=== PATIENT | female | born 1970 | race African-American/Black ===

== ENCOUNTER 2021-02-22 17:27 | Outpatient (CLI) | payer OTHER, SELFPAY ==
--- NOTE | ~2021-02-22 | XR_ITS ---
EXAMINATION: XR lumbar spine 2-3V EXAM DATE: 02/22/2021 18:21 INDICATION: Low back pain Lt side; fell from rolling chair onto Lt side . Initial encounter. TECHNIQUE: Lumber spine frontal, lateral, lateral L5-S1 projections for interpretation. There is no prior study for comparison. FINDINGS: There is 2 mm anterolisthesis L4-5, mild loss of the L4-5 disc height. The vertebral chris s are otherwise aligned. The vertebral body and disc heights are otherwise well maintained. Mild lumb ar facet arthropathy. There are no acute fractures identified. Sacrum, sacroiliac joints, sacral arcu ate lines are intact. IMPRESSION: Mild lumbar spondylosis. Reviewed, dictated and finalized at location A. IMPRESSION: Mild lumbar spondylosis.
--- NOTE | ~2021-02-22 | XR_ITS ---
EXAMINATION: XR shoulder LT min 2V EXAM DATE: 02/22/2021 18:21 INDICATION: Left shoulder pain; fell from rolling chair onto Lt side. TECHNIQUE: The following left shoulder projections obtained: frontal projection with internal rotatio n, frontal projection with external rotation, Grashey, and axillary (4+ views). There is no prior st udy for comparison. FINDINGS: No evidence of left shoulder rotator cuff calcific tendinosis. Unremarkable left glenoh umeral and acromioclavicular joints. There are no acute fractures or dislocations identified. There is no subcutaneous gas. The soft tissue is unremarkable. There are no radiopaque foreign bodies. IMPRESSION: 1. Unremarkable left shoulder exam. Reviewed, dictated and finalized at location A.
--- NOTE | ~2021-02-22 | XR_ITS ---
EXAMINATION: XR cervical spine 4-5V EXAM DATE: 02/22/2021 18:20 INDICATION: Neck pain Lt sided pain; fell from rolling chair onto Lt side . TECHNIQUE: Cervical spine lateral, frontal, open-mouth odontoid projections (4 images). There is no prior study for comparison. FINDINGS: There is no evidence of acute cervical fracture. The odontoid process is intact. Pre-dens space is normal. Prevertebral soft tissue is normal. There are no soft tissue abnormalities identi fied. Vertebral body and disc heights are well-maintained. The vertebral bodies are aligned. IMPRESSION: 1. No acute cervical findings. Reviewed, dictated and finalized at location A.
== END 2021-02-22 17:28 | disposition home or self-care (01) ==
LOC: ANHIMG 17:45
PROVIDERS: PCP Nurse Practitioner Family
DX: M54.2 Cervicalgia (principal); M25.512 Pain in left shoulder; M47.896 Other spondylosis, lumbar region
CPT/HCPCS: 72050; 72100; 73030

== ENCOUNTER 2021-05-08 10:12 | Outpatient (CLI) | payer OTHER, SELFPAY ==
[2021-05-08 11:17] LABS: Basophils Percent Auto 0.6 % (0.2-1.2); Eosinophils Absolute Auto 0.2 K/mm3 (0-0.3); Hematocrit 32.6 % (37.0-47.0); Hemoglobin 10.4 g/dL (12.0-15.0); Immature Granulocyte Absolute 0.01 K/mm3 (0.00-0.031); Immature Granulocyte Percent A 0.1 % (0-0.5); Lymphocytes Absolute Auto 2.86 K/mm3 (0.9-3.2); Lymphocytes Percent Auto 40.8 % (18.3-44.2); Mean Corpuscular HGB Conc 31.9 g/dl (32-36); Mean Corpuscular Hemoglobin 27.3 pg (26-34); Mean Corpuscular Volume 85.6 fl (80-100); Mean Platelet Volume 9.7 fl (7.4-10.4); Monocytes Absolute Auto 0.6 K/mm3 (0.1-0.6); Monocytes Percent Auto 8.7 % (2.6-8.5); Neutrophils Absolute Auto 3.3 K/mm3 (1.3-6.7); Neutrophils Percent Auto 46.8 % (45.5-73.1); Platelet Count Result 551 k/mm3 (150-375); Red Blood Count 3.81 M/mm3 (4.2-5.4); Red Cell Distribution Width 17.6 % (11.5-14.5)
== END 2021-05-08 10:13 | disposition home or self-care (01) ==
PROVIDERS: Visit Provider Obstetrics & Gynecology
DX: N92.1 Excessive and frequent menstruation with irregular cycle (principal)
CPT/HCPCS: 36415; 85025

== ENCOUNTER 2021-05-17 11:27 | Outpatient (CLI) | payer OTHER, SELFPAY ==
--- NOTE | ~2021-05-17 | US_ITS ---
EXAMINATION: US pelvic complete w TV DATE: 05/17/2021 11:59 INDICATION: Enlarged uterus. Menorrhagia. Comparison:No prior studies for comparison. TECHNIQUE: Multiple transabdominal and endovaginal sonographic images of the pelvis performed. FINDINGS: The uterus measures 13.2 x 7.5 x 8.4 cm. There is a uterine fibroid measuring 2.5 cm parace ntral to the right. The endometrial complex measures 8 mm. The right ovary measures 3.9 x 1.8 x 2.9 cm and the left ovary measures 3.7 x 3.1 x 3.3 cm. There ar e small follicles in each ovary. Normal doppler signal in both ovaries. There is no free fluid in the pelvis. There are no abnormal masses seen on either side. IMPRESSION: 1. Enlarged fibroid uterus. Reviewed, dictated and finalized at location A. IMPRESSION: 1. Enlarged fibroid uterus.
== END 2021-05-17 11:28 ==
PROVIDERS: Visit Provider Obstetrics & Gynecology
DX: N85.2 Hypertrophy of uterus (principal); D25.9 Leiomyoma of uterus, unspecified
CPT/HCPCS: 76830; 76856

== ENCOUNTER 2024-05-31 15:14 | Outpatient (CLI) | payer OTHER, SELFPAY ==
[2024-05-31 17:17] LABS: Iron 30 ug/dL (37-170)
[2024-05-31 17:29] LABS: Percent Iron Saturation 8 % (20-50)
[2024-05-31 17:54] LABS: Ferritin 8.17 ng/mL (11.1-264)
== END 2024-05-31 15:15 | disposition home or self-care (01) ==
DX: D50.9 Iron deficiency anemia, unspecified (principal); E53.8 Deficiency of other specified B group vitamins
CPT/HCPCS: 36415; 82607; 82728; 83540; 83550

== ENCOUNTER 2024-06-08 12:39 | Outpatient (CLI) | payer OTHER, SELFPAY ==
--- NOTE | ~2024-06-08 | US_ITS ---
US pelvic complete w TV Ordering provider: Phil Chavez MD History: . N93.9 - Abnormal uterine and vaginal bleeding, unspecified . Comparison: May 17, 2021 Technique: Transabdominal and endovaginal ultrasound of the pelvis (Doppler ultrasound interrogation techniques used as needed for this exam.) FINDINGS: CERVIX: Nabothian cyst. Blood clot is also seen in the cervix. UTERUS: Measures 13.5x 7.6x 7 cm in length which is within normal limits and is anteverted. Enlarged fibroid uterus is noted measuring 2.7 x 2.4 x 2.4 cm. ENDOMETRIUM: Not well demonstrated. CUL DE SAC: Minimal free fluid. RIGHT OVARY: Normal in size measuring 2.7x 2.3x 1.8 cm. Normal echotexture. Doppler vascular flow pre sent. LEFT OVARY: Normal in size measuring 3x 2.1x 2.2 cm. Normal echotexture. Doppler vascular flow presen t. ADNEXA: Normal. No mass. IMPRESSION: Fibroid uterus which is slightly larger than the previous study. Minimal free fluid. Nabothian cysts in the cervix. Minimal fluid in the cervix. Otherwise, normal pelvic ultrasound. Reviewed, dictated and finalized at location A. IMPRESSION: Fibroid uterus which is slightly larger than the previous study. Minimal free f luid. Nabothian cysts in the cervix. Minimal fluid in the cervix. Otherwise, no rmal pelvic ultrasound.
== END 2024-06-08 12:40 | disposition home or self-care (01) ==
LOC: ANHIMG 12:40
PROVIDERS: Visit Provider Obstetrics & Gynecology
DX: N93.9 Abnormal uterine and vaginal bleeding, unspecified (principal); D50.8 Other iron deficiency anemias; D25.9 Leiomyoma of uterus, unspecified
CPT/HCPCS: 76830; 76856

== ENCOUNTER 2024-11-09 14:50 | Outpatient (CLI) | payer OTHER, SELFPAY ==
--- NOTE | ~2024-11-09 | MM_ITS ---
EXAMINATION: MM screening miriam BI w alan HISTORY: Screening TECHNIQUE: Craniocaudal and mediolateral oblique 3-D tomosynthesis images were obtained and synthetic 2-D images were generated. CAD analysis was submitted and interpreted. COMPARISON: No prior mammogram is available for comparison at this institution. BREAST PARENCHYMAL COMPOSITION: Not dense: There are scattered areas of fibroglandular density. FINDINGS: There is no evidence of suspicious mass, calcification, or architectural distortion to sugg est malignancy in either breast. There has been no suspicious interval change. IMPRESSION: 1. No mammographic evidence of malignancy. 2. Recommend routine screening mammography in one year. BI-RADS Category 1: Negative Reviewed, dictated and finalized at location B.
--- OUTSIDE RECORDS SUMMARY | 2024-11-09 16:27 | XMS_ITS ---
Author Organization [employer] [facility] Address [address] [place] [address] [address] [place] [address] Care Team Providers Care Skin Peeling Machine Operator Name Role Phone Kennedy Gibson MD Primary Care Provider Karson Eldridge [facility] [phone] REASON FOR VISIT 08/22 UMR Colon Auth-pending Encounters Encounter Location Date Provider Diagnosis [facility], [address] [place] [address] 06/16/2024 Karson José Plan Of Treatment No Information Progress Notes * Fercho JAMESoinette LDOB: (53 yo F)Acc No.[id number]:06/16/2024 Patient: Jackelin RICE :1970 A ge:53 Y S ex:Female Address:[address] [place] [address] * true * Date: Generated for Cortneyi isac/Luisg/eTransmitting on: 0 11/09/2024 04:27 PM CDT
--- OUTSIDE RECORDS SUMMARY | 2024-11-09 16:27 | XMS_ITS ---
Author Organization [employer] Address [address] [facility] [address] [place] [address] Care Team Providers Care Websphere Commerce Architect Name Role Phone Kennedy Gibson MD Primary Care Provider Karson [facility] [phone] REASON FOR VISIT screening, 5ft11 270 Medications Medication SIG (Take, Route, Frequency, Duration) Notes Start Date End Date Status Na Sulfate-K Sulfate-Mg Sulf 17.5-3.13-1.6 GM/177ML ML Orally Twice a day,Follow Physician Instructions. for 1 days 06/21/2024 Active Problems Problem Type SNOMED Code ICD Code Onset Dates Problem Status W/U Status Risk Notes Problem Colon cancer screening (190505618) Colon cancer screening (Z12.11) Active confirmed Problem Benign neoplasm of colon (91563817) Benign colon polyp (K63.5) Active confirmed Encounters Encounter Location Date Provider Diagnosis [facility] [address] [place] [address] 08/22/2024 Karson José Colon cancer screening Z12.11 and Benign colon polyp K63.5 Assessments Encounter Date Diagnosis (ICD Code) Assessment Notes Treatment Notes Treatment Clinical Notes Section Notes 08/22/2024 Colon cancer screening (ICD-10 - Z12.11) 08/22/2024 Benign colon polyp (ICD-10 - K63.5) Plan Of Treatment Next Appt Details Follow Up: Colonoscopy 5 yea r, Reason: Progress Notes * Jackelin JAMES LDOB: (53 yo F)Acc No.[id number]:08/22/2024 Patient: Jackelin RICE Provider: Mauro José M.D. :1970 A ge:53 Y S ex:Female Date:08/22/2024 Address:[address] [place] [address] Pcp:Kennedy Gibson MD Subjective: * Chief Complaints: * S creening, 5ft11 270 * Medical History: * Surgical History: * Hospitalization/Major Diagno stic Procedure: * Medications: T akingNa Sulfate-K Sulfate-Mg Sulf 17.5-3.13-1.6 GM/177ML Solution ML Orally Twice a day,Follow Physician Instructions. Taking Na Sulfate-K Sulfate-Mg Sulf 17.5-3.13-1.6 GM/177ML Solution ML Orally Twice a day,Follow Physician Instructions. Objective: * Vitals: Assessment: * Assessment: 1. C olon cancer screening - Z12.11 (Primary) 2 . B enign colon polyp - K63.5 Plan: * Treatment: * Procedure Codes: 4 5385 LESION REMOVAL COLONOSCOPY, Modifiers: 33 * Follow Up: C olonoscopy 5 year * Images: * SORTER Sign off status: Completed true * Provider: Mauro José M.D. Date: Generated for Nicholas chau/Glen/eTransmitting on: 0 11/09/2024 04:27 PM CDT
--- OUTSIDE RECORDS SUMMARY | 2024-11-09 16:28 | XMS_ITS ---
Author Organization [employer], [facility] Address [address] [place] [address] [address] [place] [address] Care Team Providers Care Handkerchief Presser Name Role Phone Kennedy Gibson MD Primary Care Provider Karson Eldridge [facility] [phone] Encounters Encounter Location Date Provider Diagnosis [facility], [address] [place] [address] 08/29/2024 Karson José Plan Of Treatment No Information Progress Notes * Jackelin JAMES LDOB: (53 yo F)Acc No.[id number]:08/29/2024 Patient: Jackelin RICE :1970 A ge:53 Y S ex:Female Address:[address] [place] [address] * true * Date: Generated for Nicholas chau/Glen/eTransmitting on: 0 11/09/2024 04:27 PM CDT
--- OUTSIDE RECORDS SUMMARY | 2024-11-09 16:28 | XMS_ITS | Patient Health Record ---
Author Organization [employer] Address [address] [facility] [address] [place] [address] Care Team Providers Care Ice Cream Mixer Name Role Phone Kennedy Gibson MD Primary Care Provider Karson Eldridge [facility] [phone] Results Component Value Reference Range Notes Pathology Report Reviewed date:08/29/2024 01:27:46 PM Interpretation: Performing Lab: Notes/Report: DIAGNOSES A. Sigmoid Colon Polyp, Polypectomy: -Benign colonic mucosa with a prominent intramucosal lymphoid aggregate. -Negative for adenoma, dysplasia or malignancy. COMMENTS A. A. A. Intramucosal lymphoid aggregates can sometimes give the overlying mucosa a polypoid endoscopic appearance. CLINICAL HISTORY Screening for colorectal malignant neoplasm. One 5 mm polyp in the sigmoid colon. GROSSING DESCRIPTION A. The specimen is received in a Formalin-filled container labeled with the patient's name and designated Sigmoid Colon Polyp It contains 2 fragments of mcdonnell tissue that measure 20x6x1 and 21x7x1 mm - both serially sectioned. The specimen was entirely submitted into a single cassette for processing. MICROSCOPIC DESCRIPTION Complete 100 microscopic examination is performed. The findings are included in the diagnosis rendered. Specimen A was evaluated with H&E stain. Textual Pathology Report SEE NOTES Reason For Referral No Information Medications Medication SIG (Take, Route, Frequency, Duration) Notes Start Date End Date Status Na Sulfate-K Sulfate-Mg Sulf 17.5-3.13-1.6 GM/177ML ML Orally Twice a day,Follow Physician Instructions. for 1 days 06/21/2024 Active Problems Problem Type SNOMED Code ICD Code Onset Dates Problem Status W/U Status Risk Notes Problem Colon cancer screening (333748077) Colon cancer screening (Z12.11) Active confirmed Problem Benign neoplasm of colon (26852190) Benign colon polyp (K63.5) Active confirmed Encounters Encounter Location Date Provider Diagnosis [facility] [address] [place] [address] 08/22/2024 Karson José Colon cancer screening Z12.11 and Benign colon polyp K63.5 [facility], [facility] [address] [facility] [place] [address] 06/16/2024 Karson José [facility] [address] [facility] [address] [place] [address] 06/16/2024 Karson José [address] [place] [address] 08/29/2024 Karson José Assessments Encounter Date Diagnosis (ICD Code) Assessment Notes Treatment Notes Treatment Clinical Notes Section Notes 08/22/2024 Colon cancer screening (ICD-10 - Z12.11) 08/22/2024 Benign colon polyp (ICD-10 - K63.5) Plan Of Treatment No Information Insurance Providers Payer Name Payer Address Payer Phone Subscriber Number Group Number Insured Name Patient Relationship to Insured Coverage Start Date Coverage End Date UMR E2 [address] [address] [place] [address] [id number] Jackelin James Self - patient is the insured
== END 2024-11-09 14:51 | disposition home or self-care (01) ==
LOC: ANHIMG 14:52
PROVIDERS: Visit Provider Obstetrics & Gynecology
DX: Z12.31 Encounter for screening mammogram for malignant neoplasm of breast (principal)
CPT/HCPCS: 77063; 77067

== ENCOUNTER 2024-11-16 09:31 | Outpatient (CLI) | payer OTHER, SELFPAY ==
[2024-11-16 10:31] LABS: Basophils Absolute Auto 0.1 K/mm3 (0.0-0.1); Basophils Percent Auto 0.7 % (0.2-1.2); Eosinophils Absolute Auto 0.4 K/mm3 (0-0.3); Eosinophils Percent Auto 5.7 % (0-4.4); Hematocrit 28.1 % (37.0-47.0); Hemoglobin 8.4 g/dL (12.0-15.0); Immature Granulocyte Absolute 0.02 K/mm3 (0.00-0.031); Immature Granulocyte Percent A 0.3 % (0-0.5); Lymphocytes Absolute Auto 2.93 K/mm3 (0.9-3.2); Lymphocytes Percent Auto 42.6 % (18.3-44.2); Mean Corpuscular HGB Conc 29.9 g/dl (32-36); Mean Corpuscular Hemoglobin 23.1 pg (26-34); Mean Corpuscular Volume 77.4 fl (80-100); Mean Platelet Volume 8.8 fl (7.4-10.4); Monocytes Absolute Auto 0.6 K/mm3 (0.1-0.6); Monocytes Percent Auto 9.2 % (2.6-8.5); Neutrophils Absolute Auto 2.9 K/mm3 (1.3-6.7); Neutrophils Percent Auto 41.5 % (45.5-73.1); Platelet Count Result 528 k/mm3 (150-375); Red Blood Count 3.63 M/mm3 (4.2-5.4); Red Cell Distribution Width 20.9 % (11.5-14.5); White Blood Count 6.9 K/mm3 (4.5-10.0)
[2024-11-16 11:27] LABS: Anisocytosis 2+; Platelet Estimate Increased (Adequate); Schistocytes None Seen; Target Cells 3+
[2024-11-16 11:29] LABS: Acanthocytes 1+
[2024-11-17 08:13] LABS: FSH 19.9 mIU/mL
== END 2024-11-16 09:32 | disposition home or self-care (01) ==
PROVIDERS: Visit Provider Obstetrics & Gynecology
DX: N92.0 Excessive and frequent menstruation with regular cycle (principal)
CPT/HCPCS: 36415; 82670; 83001; 85025

== ENCOUNTER 2024-11-25 12:44 | Outpatient (CLI) | payer OTHER, SELFPAY ==
--- NOTE | ~2024-11-25 | US_ITS ---
Pelvic ultrasound. Clinical History: Abnormal uterine bleeding COMPARISON: 06/08/2024 Technique: Realtime transabdominal and transvaginal scanning of the pelvis was performed. Color flow Doppler and Doppler spectral analysis were performed. Findings: The uterus is anteverted. There are multiple probable uterine fibroids, clinical probable l arge fibroid towards the fundus. Endometrial stripe is not well delineated. The right ovary measures 2.5 x 2.5 x 2.0 cm. No significant right ovarian or adnexal mass is seen. The left ovary measures 3.2 x 1.6 x 2.4 cm. No significant left ovarian or adnexal mass is seen. There is no evidence of free fluid in the cul de sac. Impression: Probable multi fibroid uterus. Endometrial stripe not clearly delineated. Reviewed, dictated and finalized at [facility]. Impression: Probable multi fibroid uterus. Endometrial stripe not clearly delineated.
--- OUTSIDE RECORDS SUMMARY | 2024-11-25 12:47 | XMS_ITS ---
Author Organization [employer], [facility] Address [address] [place] [address] [address] [place] [address] Care Team Providers Care Binder Operator Name Role Phone Kennedy Gibson MD Primary Care Provider Karson Eldridge [facility] [phone] Encounters Encounter Location Date Provider Diagnosis [facility], [address] [place] [address] 08/29/2024 Karson José Plan Of Treatment No Information Progress Notes * Jackelin JAMES LDOB: (53 yo F)Acc No.[id number]:08/29/2024 Patient: Jackelin RICE :1970 A ge:53 Y S ex:Female Address:[address] [place] [address] * true * Date: Generated for Nicholas chau/Glen/eTransmitting on: 0 11/25/2024 12:47 PM CDT
--- OUTSIDE RECORDS SUMMARY | 2024-11-25 12:47 | XMS_ITS ---
Author Organization [employer] Address [address] [facility] [address] [place] [address] Care Team Providers Care Rock Climbing Team Member Name Role Phone Kennedy Gibson MD Primary Care Provider Karson Eldridge [facility] [phone] REASON FOR VISIT screening, 5ft11 270 Medications Medication SIG (Take, Route, Frequency, Duration) Notes Start Date End Date Status Na Sulfate-K Sulfate-Mg Sulf 17.5-3.13-1.6 GM/177ML ML Orally Twice a day,Follow Physician Instructions. for 1 days 06/21/2024 Active Problems Problem Type SNOMED Code ICD Code Onset Dates Problem Status W/U Status Risk Notes Problem Colon cancer screening (780765393) Colon cancer screening (Z12.11) Active confirmed Problem Benign neoplasm of colon (79828921) Benign colon polyp (K63.5) Active confirmed Encounters Encounter Location Date Provider Diagnosis [facility] [address] [place] [address] 08/22/2024 Karson José Colon cancer screening Z12.11 and Benign colon polyp K63.5 Assessments Encounter Date Diagnosis (ICD Code) Assessment Notes Treatment Notes Treatment Clinical Notes Section Notes 08/22/2024 Colon cancer screening (ICD-10 - Z12.11) 08/22/2024 Benign colon polyp (ICD-10 - K63.5) Plan Of Treatment Next Appt Details Follow Up: Colonoscopy 5 yea r, Reason: Progress Notes * Jackelin JAMES LDOB: (53 yo F)Acc No.[id number]:08/22/2024 Patient: Jackelin RICE Provider: Mauro José M.D. :1970 A ge:53 Y S ex:Female Date:08/22/2024 Address:[address] [place] [address] Pcp:Kennedy Gibson MD Subjective: * Chief Complaints: [...] C olonoscopy 5 year * Images: * ROLL PACKER SHEET IRON Sign off status: Completed true * Provider: Mauro José M.D. Date: Generated for Nicholas chau/Glen/eTransmitting on: 0 11/25/2024 12:47 PM CDT
--- OUTSIDE RECORDS SUMMARY | 2024-11-25 12:47 | XMS_ITS ---
Author Organization [employer] [facility] Address [address] [place] [address] [address] [place] [address] Care Team Providers Care Lead Process Engineer Name Role Phone Kennedy Gibson MD Primary Care Provider Karson Eldridge [facility] [phone] REASON FOR VISIT 08/22 UMR Colon Auth-pending Encounters Encounter Location Date Provider Diagnosis [facility], [address] [place] [address] 06/16/2024 Karson José Plan Of Treatment No Information Progress Notes * Fercho JAMESoinette LDOB: (53 yo F)Acc No.[id number]:06/16/2024 Patient: Jackelin RICE :1970 A ge:53 Y S ex:Female Address:[address] [place] [address] * true * Date: Generated for Cortneyi isac/Luisg/eTransmitting on: 0 11/25/2024 12:47 PM CDT
--- OUTSIDE RECORDS SUMMARY | 2024-11-25 12:48 | XMS_ITS | Patient Health Record ---
Author Organization [employer] Address [address] [facility] [address] [place] [address] Care Team Providers Care Multifocal Button Inspector Name Role Phone Kennedy Gibson MD Primary Care Provider Karson Eldridge [facility] [phone] Results Component Value Reference Range Notes Pathology [...] Status Risk Notes Problem Colon cancer screening (803486714) Colon cancer screening (Z12.11) Active confirmed Problem Benign neoplasm of colon (08382752) Benign colon polyp (K63.5) Active confirmed Encounters Encounter Location Date Provider Diagnosis [facility] [address] [place] [address] 08/22/2024 Karson José Colon cancer screening Z12.11 and Benign colon polyp K63.5 [facility], [facility] [address] [facility] [place] [address] 06/16/2024 Karson José [facility] [address] [facility] [address] [place] [address] 06/16/2024 Karson José [address] [place] [address] 08/29/2024 Karson José Assessments Encounter Date Diagnosis [...] Coverage End Date UMR E2 [address] [address] [place] [address] [id number] Jackelin James Self - patient is the insured
== END 2024-11-25 12:45 | disposition home or self-care (01) ==
PROVIDERS: Visit Provider Obstetrics & Gynecology
DX: N93.9 Abnormal uterine and vaginal bleeding, unspecified (principal)
CPT/HCPCS: 76830; 76856

== ENCOUNTER 2024-12-23 11:16 | Outpatient (CLI) | payer OTHER, SELFPAY ==
[2024-12-23 13:01] LABS: Basophils Absolute Auto 0.1 K/mm3 (0.0-0.1); Basophils Percent Auto 0.5 % (0.2-1.2); Eosinophils Absolute Auto 0.4 K/mm3 (0-0.3); Hematocrit 28.5 % (37.0-47.0); Hemoglobin 8.2 g/dL (12.0-15.0); Immature Granulocyte Absolute 0.03 K/mm3 (0.00-0.031); Immature Granulocyte Percent A 0.3 % (0-0.5); Lymphocytes Percent Auto 45.8 % (18.3-44.2); Mean Corpuscular HGB Conc 28.8 g/dl (32-36); Mean Corpuscular Hemoglobin 22.4 pg (26-34); Mean Corpuscular Volume 77.9 fl (80-100); Mean Platelet Volume 9.5 fl (7.4-10.4); Monocytes Absolute Auto 0.8 K/mm3 (0.1-0.6); Neutrophils Absolute Auto 4.2 K/mm3 (1.3-6.7); Neutrophils Percent Auto 41.4 % (45.5-73.1); Nucleated Red Blood Cells Perc 0.2 % (0.0-0.2); Platelet Count Result 501 k/mm3 (150-375); Red Blood Count 3.66 M/mm3 (4.2-5.4); Red Cell Distribution Width 19.8 % (11.5-14.5)
[2024-12-23 13:25] LABS: Platelet Estimate Increased (Adequate)
[2024-12-23 13:26] LABS: Anisocytosis 1+; Crenated RBC 1+; Hypochromasia 1+; Schistocytes None Seen; Target Cells 1+
[2024-12-23 13:42] LABS: Iron 25 ug/dL (37-170)
[2024-12-23 14:02] LABS: Percent Iron Saturation 6 % (20-50)
--- OUTSIDE RECORDS SUMMARY | 2024-12-24 12:39 | XMS_ITS ---
Author Organization [employer] Address [address] [facility] [address] [place] [address] Care Team Providers Care Seam Rubber Name Role Phone Kennedy Gibson MD Primary Care Provider Karson Eldridge [facility] [phone] REASON FOR VISIT screening, 5ft11 270 Medications Medication SIG (Take, Route, Frequency, Duration) Notes Start Date End Date Status Na Sulfate-K Sulfate-Mg Sulf 17.5-3.13-1.6 GM/177ML ML Orally Twice a day,Follow Physician Instructions. for 1 days 06/21/2024 Active Problems Problem Type SNOMED Code ICD Code Onset Dates Problem Status W/U Status Risk Notes Problem Colon cancer screening (352391200) Colon cancer screening (Z12.11) Active confirmed Problem Benign colon polyp (K63.5) Active confirmed Encounters Encounter Location Date Provider Diagnosis [facility] [address] [place] [address] 08/22/2024 Karson José Colon cancer screening Z12.11 and Benign colon polyp K63.5 Assessments Encounter Date Diagnosis (ICD Code) Assessment Notes Treatment Notes Treatment Clinical Notes Section Notes 08/22/2024 Colon cancer screening (ICD-10 - Z12.11) 08/22/2024 Benign colon polyp (ICD-10 - K63.5) Plan Of Treatment Next Appt Details Follow Up: Colonoscopy 5 yea r, Reason: Progress Notes * Jackelin JAMES LDOB: (53 yo F)Acc No.[id number]:08/22/2024 Patient: Jackelin RICE Provider: Mauro José M.D. :1970 A ge:53 Y S ex:Female Date:08/22/2024 Address:[address] [place] [address] Pcp:Kennedy Gibson MD Subjective: * Chief Complaints: [...] C olonoscopy 5 year * Images: * DER MACHINE OPERATOR Sign off status: Completed true * Provider: Mauro José M.D. Date: Generated for Nicholas chau/Glen/eTransmitting on: 0 12/24/2024 12:39 PM CDT
--- OUTSIDE RECORDS SUMMARY | 2024-12-24 12:39 | XMS_ITS ---
Author Organization [employer] [facility] Address [address] [place] [address] [address] [place] [address] Care Team Providers Care Sandal Parts Assembler Name Role Phone Kennedy Gibson MD Primary Care Provider Karson Eldridge [facility] [phone] REASON FOR VISIT 08/22 UMR Colon Auth-pending Encounters Encounter Location Date Provider Diagnosis [facility], [address] [place] [address] 06/16/2024 Karson José Plan Of Treatment No Information Progress Notes * Fercho JAMESoinette LDOB: (53 yo F)Acc No.[id number]:06/16/2024 Patient: Jackelin RICE :1970 A ge:53 Y S ex:Female Address:[address] [place] [address] * true * Date: Generated for Cortneyi isac/Luisg/eTransmitting on: 0 12/24/2024 12:39 PM CDT
--- OUTSIDE RECORDS SUMMARY | 2024-12-24 12:40 | XMS_ITS | Patient Health Record ---
Author Organization [employer] Address [address] [facility] [address] [place] [address] Care Team Providers Care Data Warehousing Manager Name Role Phone Kennedy Gibson MD Primary Care Provider Karson Eldridge [facility] [phone] Results Component Value Reference Range Notes Pathology [...] Status Risk Notes Problem Colon cancer screening (153159070) Colon cancer screening (Z12.11) Active confirmed Problem Benign colon polyp (K63.5) Active confirmed Encounters Encounter Location Date Provider Diagnosis [facility] [address] [place] [address] 08/22/2024 Karson José Colon cancer screening Z12.11 and Benign colon polyp K63.5 [facility], [facility] [address] [facility] [address] [place] [address] 06/16/2024 Karson José [facility] [address] [facility] [address] [place] [address] 06/16/2024 Karson José [facility] [address] [facility] [address] [place] [address] 08/29/2024 Karson José Assessments Encounter Date Diagnosis (ICD Code) Assessment Notes Treatment Notes Treatment Clinical Notes Section Notes 08/22/2024 Colon cancer screening (ICD-10 - Z12.11) 08/22/2024 Benign colon polyp (ICD-10 - K63.5) Plan Of Treatment No Information Insurance Providers Payer Name Payer Address Payer Phone Subscriber Number Group Number Insured Name Patient Relationship to Insured Coverage Start Date Coverage End Date R E2 [address] [address] [place] [address] [phone] [id number] Jackelin James Self - patient is the insured
--- OUTSIDE RECORDS SUMMARY | 2024-12-24 12:40 | XMS_ITS ---
Author Organization [employer], [facility] Address [address] [place] [address] [address] [place] [address] Care Team Providers Care Elementary School Counselor Name Role Phone Kennedy Gibson MD Primary Care Provider Karson [facility] [phone] Encounters Encounter Location Date Provider Diagnosis [facility], [address] [place] [address] 08/29/2024 Karson José Plan Of Treatment No Information Progress Notes * Jackelin JAMES LDOB: (53 yo F)Acc No.[id number]:08/29/2024 Patient: Jackelin RICE :1970 A ge:53 Y S ex:Female Address:[address] [place] [address] * true * Date: Generated for Nicholas chau/Glen/eTransmitting on: 0 12/24/2024 12:39 PM CDT
== END 2024-12-23 11:17 | disposition home or self-care (01) ==
LOC: ANHLAB 11:18
PROVIDERS: Visit Provider Obstetrics & Gynecology
DX: N92.0 Excessive and frequent menstruation with regular cycle (principal)
CPT/HCPCS: 36415; 83540; 83550; 85025

== ENCOUNTER 2025-04-28 08:16 | Outpatient (CLI) | payer OTHER, SELFPAY ==
--- OUTSIDE RECORDS SUMMARY | 2025-04-28 08:22 | XMS_ITS | Patient Health Record ---
Author Organization [employer] Address [address] [place] [address] Care Team Providers Care Nursing Home Director Name Role Phone Kennedy Gibson MD Primary Care Provider [facility] [phone] Results Component Value Reference Range Notes Pathology [...] Status Risk Notes Problem Colon cancer screening (220728217) Colon cancer screening (Z12.11) Active confirmed Problem Benign neoplasm of colon (17289988) Benign colon polyp (K63.5) Active confirmed Encounters Encounter Location Date Provider Diagnosis [facility] [address] [place] [address] 08/22/2024 Karson José Colon cancer screening Z12.11 and Benign colon polyp K63.5 [facility], [facility] [address] [place] [address] 06/16/2024 Karson José [facility] [address] [place] [address] 06/16/2024 Karson José [address] [place] [address] 08/29/2024 Karson José Assessments Encounter Date Diagnosis [...] Coverage End Date [employer] E[employer] [address] [address] [place] [address] [id number] Jackelin James Self - patient is the insured
[2025-04-28 08:35] LABS: Hematocrit 35.3 % (37.0-47.0); Hemoglobin 11.2 g/dL (12.0-15.0); Mean Corpuscular HGB Conc 31.7 g/dl (32-36); Mean Corpuscular Hemoglobin 26.7 pg (26-34); Mean Corpuscular Volume 84.0 fl (80-100); Platelet Count Result 490 k/mm3 (150-375); Red Blood Count 4.20 M/mm3 (4.2-5.4); White Blood Count 7.9 K/mm3 (4.5-10.0)
== END 2025-04-28 08:17 | disposition home or self-care (01) ==
LOC: ANHSURGERY 08:19
PROVIDERS: Visit Provider Obstetrics & Gynecology
DX: N92.6 Irregular menstruation, unspecified (principal)
CPT/HCPCS: 36415; 85027; 86850; 86900; 86901

== ENCOUNTER 2025-05-12 10:37 | Observation (INO) | payer OTHER, SELFPAY ==
--- NOTE | 2025-04-14 12:15 | PC.NURSE ---
Report to the Outpatient Waiting Room, entrance under the green pavilion located off [facility], at time _6 AM on date _05/11/25 . Planned Procedure Time: _7:30 AM .? Time changes happen often and if your time is changed the preop area will call you the afternoon before. - You and your visitor will be asked to self-screen and do not enter if you have any COVID symptoms. Please call surgeon if you need to reschedule. - A mask is optional within the hospital at this time. Patients may have clear liquids (water, carbonated beverages, clear teas, apple juice) until 3 hours prior to surgery( 4:30 AM) with a maximum of 20 ounces. - No food from midnight until time of surgery and no smoking, or chewing tobacco (or any form of nicotine). No chewing gum, candy or mints. - Take only the following medications with a SIP of water on the morning of surgery: _INHALER IF NEEDED DO NOT STOP ANY OF YOUR OTHER PRESCRIPTION MEDICATIONS PRIOR TO SURGERY EXCEPT THE FOLLOWING Hold all vitamins and supplements for 3 days per anesthesiologist.LAST DOSE 05/07/25 Medications to discontinue per physician NONE Please no make-up, nail turkish, hairspray, perfume, deodorant, or body powder the day of surgery.? No jewelry (including any body piercings) or valuables the day of surgery, leave them at home.? Please take a shower or bath the night before, or the morning of, surgery with an antibacterial soap.? Wear comfortable, loose fitting clothing.? Children are encouraged to wear pajamas. - Jewelry must be removed prior to entering the operating room.? Rings and piercings that are not removed may be cut off. - The hospital will not accept responsibility for valuables.? - Please leave all valuables, including medications, at home the day of surgery. If you are going home after surgery, a licensed rolloff driver must drive you home.? - NO public transportation without another adult if you receive anesthesia. - We recommend that an adult stay with you for 24 hours following discharge. - We also recommend that you do not drive, make important decision, drink alcoholic beverages, or take any drugs that were not prescribed by your health care provider for at least 24 hours after your discharge time. For Pediatric surgeries, we recommend two adults accompany the child home. Follow any additional instructions given to you from your surgeon. VERBAL AND WRITTEN instructions given to ___PATIENT and asked if any additional questions and then verbalized understanding. Patient advised to call surgeon office or pre surgery nurse liaison [phone] if any additional questions.
[2025-04-14 12:21] VITALS: BP 146/82; PULSE 58; RESP 18; TEMP 36.7; O2SAT 100; BMI 41.7
[2025-05-11] VITALS (13 sets, daily range): BP systolic 93–169; BP diastolic 52–86; PULSE 57–94; RESP 13–16; TEMP 36.1–37.1; O2SAT 97–100
[2025-05-11] MEDS: LACTATED RINGERS 1,000 ML 30 ML IV CONT ×2 (06:45→10:43)
[2025-05-11] MEDS: KETOROLAC 15 MG/ML VIAL (*BKC) IV PUSH (07:00)
[2025-05-11] MEDS: ACETAMINOPHEN 500 MG TABLET 1000 MG PO ×3 (07:00→20:12)
[2025-05-11] MEDS: SCOPOLAMINE 1 MG PATCH 1 PATCH TRANSDERM (07:00)
--- NOTE | 2025-05-11 07:04 | WPDHPUPDATE1 ---
History and Physical Update Update Date/Time: 05/11/25 07:04 History and Physical has been reviewed, including an updated exam of the patient. There are NO changes in the patient's condition. Risks, benefits, and alternatives have been discussed and questions answered. Patient agrees to proceed with procedure.
--- NOTE | 2025-05-11 07:10 | P.PNAN_ITS ---
Anes - Initial Pre Proc Eval Procedure: Operation Date: 05/11/25 07:30 Proposed Procedures p Robotic Assisted Total Laparoscopic Hysterectomy with Bilateral Salpingectomy - Phil Chavez MD Date/Time: 05/11/25 07:10 Surgeon: Phil Chavez MD Pre Op Diagnosis: abn uterine bleeding Patient Data Age: 54 Gender: F Height: 1.78 m Weight: 132 kg Last Vital Signs Temp 36.7 C 04/14/25 12:21 Pulse 58 L 04/14/25 12:21 Resp 18 04/14/25 12:21 BP 146/82 H 04/14/25 12:21 Pulse Ox 100 04/14/25 12:21 O2 Del Method Room Air 04/14/25 12:21 Allergies Allergy/AdvReac Type Severity Reaction Status Date / Time morphine AdvReac Severe Anaphylaxis Verified 05/11/25 05:53 Home Medications ?Medication ?Instructions ?Recorded ?Confirmed ?Type albuterol 90 mcg/actuation aerosol 90 mcg inhalation P RN PRN 12/12/24 04/14/25 History inhaler shortness of breath or wheez ing clobetasol 0.05 % topical ointment 1 applic topical BI D PRN itching 12/12/24 04/14/25 History cyanocobalamin (vitamin B-12) 1,000 mcg PO DAILY 04/1404/14/25 History 1,000 mcg capsule Patient hx anesthesia problems: none Family hx anesthesia problems: none Results Review: All pre-operative results and documents have been reviewed as part of the pre- operative evaluation. [facility] Past Medical History Medical History (Updated 05/11/25 @ 07:11 by Troy Bourgeois DO) History of pulmonary embolism Asthma Menorrhagia H/O blood clots in lungs Lupus Surgical History Surgical History History of gastrointestinal surgery growth removed from stomach H/O heart surgery heart surgery ( window) age 18 H/O tubal ligation Delivery by section (09/24/93) rpt c/s Delivery by section (02/28/92) primary c/s Family History Family History Mother Diabetes mellitus Hypertension Sibling Diabetes mellitus sister Hypertension sister Father Malignant neoplasm of prostate Social History Social History Smoking status: Never smoker Second hand tobacco smoke exposure: No Alcohol intake: current Alcohol use details: 1-2 every few months Substance use: never Substance use type: does not use Do You Feel Safe in your Home?: Yes Lack of Transportation: No Lack of Food: Never True Current Housing: I Have Housing Concerned About Future Housing: No Difficulty Paying Gas/Electric Bills: Decline to Answer Difficulty Paying for Meds: Decline to Answer Currently Unemployed: No Education: Decline to Answer Difficulty w/ Childcare or Family Care: No Living arrangements: with family Occupation/Education: occupation 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 Gender identity (if verbalized by the patient): Female Sexual Orientation (if Verbalized by the Patient): Straight or Heterosexual Spiritual care concerns: No Anes - Eval Final PreProcedure Day of Procedure 05/11/25 07:10 Patient weight: morbidly obese Heart: regular rate and rhythm Lungs: clear to auscultation Airway: Mallampati scale class III Neurological: alert and oriented Last oral intake: >/= 8 hours ASA classification: III Emergent: no Anesthetic plan: proceed Anesthesia type and monitoring: general ETT and standard monitoring Results Review: All pre-operative results and documents have been reviewed as part of the pre-operative evaluation. Informed Consent: The patient's anesthetic plan and its attendant risks and benefits were discussed with the patient/family/POA. Questions were solicited and answers provided to the satisfaction of the patient/family/POA.
[2025-05-11 07:23] LABS: Hematocrit 35.1 % (37.0-47.0); Hemoglobin 11.2 g/dL (12.0-15.0); Immature Granulocyte Percent A 0.4 % (0-0.5); Lymphocytes Absolute Auto 3.39 K/mm3 (0.9-3.2); Mean Corpuscular HGB Conc 31.9 g/dl (32-36); Mean Corpuscular Hemoglobin 26.8 pg (26-34); Mean Corpuscular Volume 84.0 fl (80-100); Nucleated Red Blood Cells Absolute Auto 0.000 K/mm3 (0.0-0.012); Nucleated Red Blood Cells Perc 0.0 % (0.0-0.2); Platelet Count Result 490 k/mm3 (150-375); Red Blood Count 4.18 M/mm3 (4.2-5.4); White Blood Count 7.7 K/mm3 (4.5-10.0)
[2025-05-11] MEDS: ceFAZolin 3 GM/D5W 100 ML 100 ML IVPB (07:25)
[2025-05-11] MEDS: metroNIDAZOLE 500 MG/ISO 100ML 500 MG/100 ML BAG 100 MG IVPB (08:50)
--- NOTE | 2025-05-11 09:35 | S_PTH ---
PATIENT: Jackelin James LOC: ANHOB2 U#:[id number] AGE/SX: 54/F ROOM: 283 RE05/12/[address]: Phil Chavez MD : 1970 BED: 00 DIS: 05/13/2025 SPEC #: [id number] RECD: 05/11/25 11:28 STATUS: ENRRIQUE RETanisha #: [id number] BROOKE: 05/11/25 09:[address]: Phil Chavez DEPT: [facility] Surgical RECD BY: Deena Donaldson Tissues: A - Uterus Procedures: Hematoxylin and Eosin Stain Gross and Microscopic Level 5
[2025-05-11] MEDS: METHYLENE BLUE 0.5% INJ 10 ML AMPULE IRRIGATION (09:42)
--- NOTE | 2025-05-11 10:22 | W.PM.PROC2 ---
Procedure Note - Detailed Date of Procedure 05/11/25 Pre-op Diagnosis 1. Menometrorrhagia 2. Enlarged fibroid uterus 3. Prior section x2 4. Anemia Post-op Diagnosis Same Procedure Performed 1. Robotic assisted laparoscopy 2. Laparotomy 3. Supracervical hysterectomy with bilateral salpingectomy Surgeon Phil Chavez MD Anesthesia General Findings Enlarged globular uterus. 525 gram uterine weight Description of Procedure Patient prepped and draped in usual manner for this procedure. Laparoscopic procedure was performed to assess for adhesions and ability to proceed laparoscopically. There were no issues other than large uterus and the other trocar sites were marked and placed under direct visualization. At this point surgeon moved to the vagina and the vaginal instruments were placed for uterine mobility throughout the case. The instruments were placed and surgeon moved to the console. There was a small amount of exudate in the pelvis which was collected and sent for g stain and culture. A Once the surgeon moved to the console enlarged uterus was noted and mesial salpinx was cauterized bilaterally to remove the fallopian tubes. Round ligaments were cauterized and cut and the bladder flap was developed with the was a lot of scarring in the anterior cul-de-sac. Uterine vessels were also skeletonized and cauterized and cut. There was of moderate amount of oozing from the uterine side though no active bleeding was noted. Also at this point due to the enlarged uterus in limited mobility, inability to see adequately on either the anterior or posterior cul-de-sacs decision at this point was made to proceed with an open laparotomy to remove our specimen. All the trocars removed and these incisions were approximated using 4-0 Monocryl. Prior Pfannenstiel scar was opened without of fascia and then the peritoneum was readily entered with the uterus directly beneath the incision. Once this was done sharply knife was used to perform a supracervical hysterectomy and take the specimen out of the field. The cervix was then closed using 0 Vicryl running interlocking manner. Left angle there was a significant amount of bleeding, vessel was identified and rendered hemostatic with a [id number] suture. Irrigation was undertaken, and evaluation of pelvis revealed no further bleeding. Prior to this the bladder was backfilled with 200cc of fluid and no spillage was noted. Rosie was placed empirically on all the raw sites and again monitored for 3minutes with no further bleeding. Fascia was then approximated using 0 Vicryl running interlocking manner then subcuticular layer of 0 chromic and a 4-0 Monocryl to approximate the skin edges. Patient was then sent to the recovery room in stable condition. Estimated Blood Loss 900 Drains Yes ([place]) Pathology Yes Complications No immediate complications Condition Stable Disposition PACU [facility] Billing Surgery - Charge Forward: Surgery Billing
[2025-05-11] MEDS: fentaNYL CITRATE INJ (*CRX) 100 MCG/2 ML VIAL 25 MCG IV PUSH ×4 (10:50→12:10)
[2025-05-11] MEDS: ONDANSETRON INJ 4 MG/2 ML VIAL IV PUSH (11:31)
--- NOTE | 2025-05-11 12:25 | PC.NURSE ---
Pt transported to room #283 via bed with pacu staff at bedside. Pt oriented to room, meal ordering service, call light, etc.
[2025-05-11] MEDS: HYDROmorphone HCL INJ (*CRX) 1 MG/ML SYR 0.5 MG IV PUSH ×3 (12:44→18:31)
[2025-05-11] MEDS: DEXTROSE 5%/0.45% SOD CHL 1,000 ML 125 ML IV CONT ×2 (12:46→22:31)
[2025-05-11] MEDS: KETOROLAC 30 MG/ML VIAL (*BKC) IV PUSH ×2 (13:56→20:12)
[2025-05-11] MEDS: SIMETHICONE 80 MG TAB.CHEW PO ×2 (13:57→16:41)
[2025-05-11] MEDS: AZITHROMYCIN IV 500 MG in SODIUM CHLORIDE 0.9% IV 250 ML IVPB (15:29)
[2025-05-11] MEDS: oxyCODONE HCL (*CRX) 5 MG TAB IR PO ×2 (16:41→22:00)
[2025-05-11] MEDS: DOCUSATE SODIUM 100 MG CAPSULE PO (16:41)
[2025-05-12] VITALS (10 sets, daily range): BP systolic 115–136; BP diastolic 66–81; PULSE 67–86; RESP 16; TEMP 36.1–37.1; O2SAT 95–100
[2025-05-12] MEDS: ACETAMINOPHEN 500 MG TABLET 1000 MG PO ×4 (03:35→23:07)
[2025-05-12] MEDS: KETOROLAC 30 MG/ML VIAL (*BKC) IV PUSH (03:35)
[2025-05-12 05:02] LABS: Hematocrit 24.4 % (37.0-47.0); Hemoglobin 7.9 g/dL (12.0-15.0); Immature Granulocyte Percent A 0.4 % (0-0.5); Lymphocytes Absolute Auto 2.85 K/mm3 (0.9-3.2); Mean Corpuscular HGB Conc 32.4 g/dl (32-36); Mean Corpuscular Hemoglobin 27.1 pg (26-34); Mean Corpuscular Volume 83.8 fl (80-100); Nucleated Red Blood Cells Absolute Auto 0.000 K/mm3 (0.0-0.012); Nucleated Red Blood Cells Perc 0.0 % (0.0-0.2); Platelet Count Result 364 k/mm3 (150-375); Red Blood Count 2.91 M/mm3 (4.2-5.4); White Blood Count 11.2 K/mm3 (4.5-10.0)
[2025-05-12 05:14] LABS: Anion Gap 7 mmol/L (4-12); Blood Urea Nitrogen 11 mg/dL (7-17); Calcium 7.6 mg/dL (8.4-10.2); Carbon Dioxide 23 mmol/L (22-30); Chloride 102 mmol/L (98-107); Estimated CRCL calculation 86 ml/min; Estimated Glomerular Filt Rate 59; Glucose 137 mg/dL (65-110); Potassium 3.7 mmol/L (3.4-5.0); Sodium 132 mmol/L (137-145)
[2025-05-12] MEDS: DEXTROSE 5%/0.45% SOD CHL 1,000 ML 125 ML IV CONT (06:56)
[2025-05-12] MEDS: SIMETHICONE 80 MG TAB.CHEW PO ×3 (07:07→16:41)
[2025-05-12] MEDS: oxyCODONE HCL (*CRX) 5 MG TAB IR PO ×4 (07:07→20:47)
[2025-05-12] MEDS: DOCUSATE SODIUM 100 MG CAPSULE PO ×2 (07:07→16:41)
--- NOTE | 2025-05-12 07:21 | P.PNAN_ITS ---
Anes - Prog Note Post-Op Date/Time: 05/12/25 07:21 Cardiovascular status: normal Respiratory status: normal Airway patency: baseline Mental status: baseline Vital Signs: Last Vital Signs Temp 36.1 C L 05/12/25 03:35 Pulse 86 05/12/25 03:35 Resp 16 05/12/25 03:35 BP 136/81 05/12/25 03:35 Pulse Ox 96 05/12/25 03:35 O2 Del Method Room Air 05/11/25 19:12 O2 Flow Rate 8 05/11/25 11:00 Pain Score (VAS): 5 I/O: Intake & Output 05/11/25 05/11/25 05/12/25 15:59 23:59 07:59 Intake Total 1077.5 912.5 1550 Output Total 500 300 125 Balance 577.5 612.5 1425 Laboratory Tests 05/12/25 04:21 05/12/25 04:21 05/11/25 05/12/25 07:12 04:21 WBC 7.7 11.2 H RBC 4.18 L 2.91 L Hgb 11.2 L 7.9 L D Hct 35.1 L 24.4 L MCV 84.0 83.8 MCH 26.8 27.1 MCHC 31.9 L 32.4 RDW 19.6 H 19.3 H Plt Count 490 H 364 MPV 9.5 10.0 Immature Gran % (Auto) 0.4 0.4 Neut % (Auto) 37.5 L 64.2 Lymph % (Auto) 44.0 25.5 [place] % (Auto) 11.2 H 9.8 H Eos % (Auto) 6.4 H 0.0 Baso % (Auto) 0.5 0.1 L Lymph # (Auto) 3.39 H 2.85 [place] # (Auto) 0.9 H 1.1 H Eos # (Auto) 0.5 H 0.0 Baso # (Auto) 0.0 0.0 Abs Immat Gran (auto) 0.03 0.05 H Absolute Neuts (auto) 2.9 7.2 H Absolute Nucleated RBC 0.000 0.000 Nucleated RBC % 0.0 0.0 Sodium 132 L Potassium 3.7 Chloride 102 Carbon Dioxide 23 Anion Gap 7 BUN 11 Creatinine 0.99 Estim Creat Clear Calc 86 Estimated GFR 59 Glucose 137 H Calcium 7.6 L Patient Feedback: Patient satisfied with anesthetic care.
[2025-05-12] MEDS: ENOXAPARIN 40 MG/0.4 ML SYRINGE SUB-Q ×2 (08:34→20:47)
[2025-05-12] MEDS: CYANOCOBALAMIN 1,000 MCG TABLET 1000 MCG PO (08:35)
--- NOTE | 2025-05-12 08:43 | PM.GYNPNOP ---
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 Did have some vaginal bleeding last night but nothing this morning when up to use the bathroom, which she was able to do without issue. Getting up today she was lightheaded, no chest pain or shortness of breath. O: VSS afebrile Abdomen positive bowel sounds though decreased. Appropriately tender. Bandage in place. Labs: Noted Assessment: 1. POD 1 status post supracervical hysterectomy ( robotic and laparotomy combined)... slow but expected recovery. 2. Anemia...consistent with blood loss at surgery. Discussed transfusion later today or potentially tomorrow if remains symptomatic, patient would prefer to be transfused at this time and therefore will type and cross her for 3units of packed cells and transfuse today. Will recheck blood count in the morning. 3. History of pulmonary embolus...will initiate Lovenox this morning at40mg b.i.d. due to elevated BMI. Will continue this upon discharge as well. Plan: 1. as noted above 2. Will consider discharge tomorrow if improving, GI function improves, blood count improves and no concern for continued bleeding. Patient states good understanding of all above and agrees to this plan of care. 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 - PN: Obj Data Vital Signs Vital Signs: Vital Signs - 24 hr 05/11/25 10:43 05/11/25 10:45 05/11/25 11:00 Temperature 98.7 F Pulse Rate 70 58 L 59 L Respiratory Rate 16 Blood Pressure 115/70 93/52 L 129/85 Pulse Oximetry 100 100 Oxygen Delivery Simple Face Mask Simple Face Mask Simple Face Mask Oxygen Flow Rate 8 8 8 05/11/25 11:15 05/11/25 11:30 05/11/25 11:45 Temperature Pulse Rate 63 57 L 57 L Respiratory Rate 16 14 13 Blood Pressure 124/62 128/75 126/70 Pulse Oximetry 98 98 99 Oxygen Delivery Room Air Room Air Room Air Oxygen Flow Rate 05/11/25 12:00 05/11/25 12:15 05/11/25 12:30 Temperature 97.3 F L Pulse Rate 60 62 72 Respiratory Rate 14 16 Blood Pressure 121/72 126/72 153/81 H Pulse Oximetry 99 98 97 Oxygen Delivery Room Air Room Air Oxygen Flow Rate 05/11/25 15:45 05/11/25 19:12 05/11/25 19:12 Temperature 97.0 F L 98.1 F Pulse Rate 70 68 Respiratory Rate 15 16 Blood Pressure 124/74 131/71 Pulse Oximetry 98 98 Oxygen Delivery Room Air Oxygen Flow Rate 05/11/25 23:49 05/12/25 03:35 05/12/25 07:30 Temperature 98.5 F 97 F L Pulse Rate 94 86 72 Respiratory Rate 16 16 16 Blood Pressure 138/86 136/81 Pulse Oximetry 99 96 95 Oxygen Delivery Room Air Oxygen Flow Rate Intake/Output Intake/Output: Intake & Output 05/09/25 05/10/25 05/11/25 05/12/25 23:59 23:59 23:59 23:59 Intake Total 2090.0 1800 Output Total 800 225 Balance 1290.0 1575 Meds/Results Medications: Active Medications Generic Name Dose Route Start Last Admin Trade Name Freq PRN Reason Stop Dose Admin Acetaminophen 1,000 mg 05/11/25 12:24 05/12/25 03:35 Acetaminophen 500 Mg Tablet PO 1,000 mg Q6HR JIMMY Administration Albuterol 1 puff 05/11/25 12:33 Albuterol Sulfate (*Sp) Aerosol 1 Puff INHALATION PRN PRN shortness of breath or wheezing Cyanocobalamin 1,000 mcg 05/12/25 09:00 05/12/25 08:35 Cyanocobalamin 1,000 Mcg Tablet PO 1,000 mcg DAILY JIMMY Administration Docusate Sodium 100 mg 05/11/25 17:00 05/12/25 07:07 Docusate Sodium 100 Mg Capsule PO 100 mg BID JIMMY Administration Enoxaparin Sodium 40 mg 05/12/25 09:00 05/12/25 08:34 Enoxaparin 40 Mg/0.4 Ml Syringe SUB-Q 40 mg Q12HR JIMMY Administration Hydromorphone HCl 0.5 mg 05/11/25 12:24 05/11/25 18:31 Hydromorphone Hcl Inj (*Crx) 1 Mg/Ml Syr IV PUSH 0.5 mg Q2H PRN Administration Breakthrough Pain Rated 4-6 or NPO Azithromycin 500 mg/ Sodium 250 mls @ 250 mls/hr 05/11/25 12:00 05/11/25 16:30 Chloride IVPB Infused Q24H JIMMY Infusion Dextrose/Sodium Chloride 1,000 mls @ 125 mls/hr 05/11/25 12:24 05/12/25 06:56 Dextrose 5% Sodium Chloride 0.45% IV CONT 125 mls/hr .Q8H JIMMY Administration Sodium Chloride 250 mls @ 30 mls/hr 05/12/25 08:16 Normal Saline Iv IV CONT 05/12/25 16:35 .Q8H20M STA Ibuprofen 600 mg 05/12/25 06:00 Ibuprofen 600 Mg Tablet PO Q6HR [facility] Miscellaneous Information 0 each 05/11/25 00:01 Albuterol Mdi Clarify How Often/Frequency Prn Prn Sob? XX 06/10/25 00:00 CLARIFY [facility] Naloxone HCl 0.1 mg 05/11/25 12:24 Naloxone Hcl 0.4 Mg/Ml Vial IV PUSH Q2M PRN Respiratory rate less than 10 Ondansetron HCl 4 mg 05/11/25 12:24 Ondansetron Inj 4 Mg/2 Ml Vial IV PUSH Q6H PRN Nausea Oxycodone HCl 5 mg 05/11/25 12:24 05/12/25 07:07 Oxycodone Hcl (*Crx) 5 Mg Tab Ir PO 5 mg Q4H PRN Administration Pain Rated 4-6 Oxycodone HCl 10 mg 05/11/25 12:24 Oxycodone Hcl (*Crx) 5 Mg Tab Ir PO Q6H PRN Pain Rated 7-10 Simethicone 80 mg 05/11/25 12:24 05/12/25 07:07 Simethicone 80 Mg Tab.Chew PO 80 mg TIDWM JIMMY Administration Labs 05/12/25 04:21 05/12/25 04:21 Labs: Laboratory Results - last 24 hr 05/12/25 04:21 WBC 11.2 H RBC 2.91 L Hgb 7.9 L D Hct 24.4 L MCV 83.8 MCH 27.1 MCHC 32.4 RDW 19.3 H Plt Count 364 MPV 10.0 Immature Gran % (Auto) 0.4 Neut % (Auto) 64.2 Lymph % (Auto) 25.5 [place] % (Auto) 9.8 H Eos % (Auto) 0.0 Baso % (Auto) 0.1 L Lymph # (Auto) 2.85 [place] # (Auto) 1.1 H Eos # (Auto) 0.0 Baso # (Auto) 0.0 Abs Immat Gran (auto) 0.05 H Absolute Neuts (auto) 7.2 H Absolute Nucleated RBC 0.000 Nucleated RBC % 0.0 Sodium 132 L Potassium 3.7 Chloride 102 Carbon Dioxide 23 Anion Gap 7 BUN 11 Creatinine 0.99 Estim Creat Clear Calc 86 Estimated GFR 59 Glucose 137 H Calcium 7.6 L
[2025-05-12] MEDS: IBUPROFEN 600 MG TABLET PO ×3 (09:54→23:07)
--- NOTE | 2025-05-12 12:23 | PC.NURSE ---
1136-Patient's IV became tender and painful. Blood transfusion stopped and new IV was initiated at 1218. Blood product was restarted at 1220.
[2025-05-12] MEDS: AZITHROMYCIN IV 500 MG in SODIUM CHLORIDE 0.9% IV 250 ML IVPB (15:23)
[2025-05-12] MEDS: HYDROmorphone HCL INJ (*CRX) 1 MG/ML SYR 0.5 MG IV PUSH (19:07)
[2025-05-13 03:20] VITALS: BP 144/88; PULSE 78; RESP 18; TEMP 36.6; O2SAT 99
[2025-05-13] MEDS: oxyCODONE HCL (*CRX) 5 MG TAB IR PO ×3 (03:20→12:49)
[2025-05-13] MEDS: ACETAMINOPHEN 500 MG TABLET 1000 MG PO ×2 (04:35→12:49)
[2025-05-13] MEDS: IBUPROFEN 600 MG TABLET PO ×2 (04:35→12:49)
[2025-05-13 04:44] LABS: Hematocrit 26.3 % (37.0-47.0); Hemoglobin 8.4 g/dL (12.0-15.0); Immature Granulocyte Percent A 0.3 % (0-0.5); Lymphocytes Absolute Auto 5.74 K/mm3 (0.9-3.2); Mean Corpuscular HGB Conc 31.9 g/dl (32-36); Mean Corpuscular Hemoglobin 27.7 pg (26-34); Mean Corpuscular Volume 86.8 fl (80-100); Nucleated Red Blood Cells Absolute Auto 0.000 K/mm3 (0.0-0.012); Nucleated Red Blood Cells Perc 0.0 % (0.0-0.2); Platelet Count Result 362 k/mm3 (150-375); Red Blood Count 3.03 M/mm3 (4.2-5.4); White Blood Count 13.6 K/mm3 (4.5-10.0)
[2025-05-13 05:18] LABS: Schistocytes None Seen; Target Cells Occasional
[2025-05-13 08:19] VITALS: BP 141/78; PULSE 85; RESP 19; TEMP 36.8; O2SAT 98
[2025-05-13] MEDS: CYANOCOBALAMIN 1,000 MCG TABLET 1000 MCG PO (08:55)
[2025-05-13] MEDS: DOCUSATE SODIUM 100 MG CAPSULE PO (08:55)
[2025-05-13] MEDS: ENOXAPARIN 40 MG/0.4 ML SYRINGE SUB-Q (08:55)
[2025-05-13] MEDS: SIMETHICONE 80 MG TAB.CHEW PO ×2 (08:55→12:49)
--- NOTE | 2025-05-13 10:54 | P.PNOB_ITS ---
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 Pain well controlled. No further bleeding. Ambulate with discomfort, no CP SOB dizziness. O: VSS afebrile Abd: inc C/D/I +BS melanie tender Lab: noted Assessment: 1. POD 2 s/p hysterectomy. Doing well with expected progress. Plan: 1. d/c home later today 2. continue lovenox, oral metronidazole, pain meds 3. f/u 3 weeks...discussed issues that she should contact me about after going home FOREST NURSERY SUPERVISOR - PN: Obj Data Vital Signs Vital Signs: Vital Signs - 24 hr 05/12/25 11:10 05/12/25 11:35 05/12/25 12:35 Temperature 97.3 F L 97.6 F 98.7 F Pulse Rate 73 67 71 Respiratory Rate 16 16 16 Blood Pressure 130/80 131/73 120/74 Pulse Oximetry 100 96 96 Oxygen Delivery 05/12/25 13:35 05/12/25 14:35 05/12/25 20:10 Temperature 98.6 F 97.6 F Pulse Rate 70 68 Respiratory Rate 16 16 Blood Pressure 115/69 125/72 Pulse Oximetry 99 99 Oxygen Delivery Room Air 05/12/25 20:10 05/12/25 23:05 05/13/25 03:20 Temperature 97 F L 97.4 F L 97.8 F Pulse Rate 83 73 78 Respiratory Rate 16 16 18 Blood Pressure 136/66 129/67 144/88 H Pulse Oximetry 96 97 99 Oxygen Delivery 05/13/25 07:00 05/13/25 08:19 Temperature 98.2 F Pulse Rate 85 Respiratory Rate 19 Blood Pressure 141/78 H Pulse Oximetry 98 Oxygen Delivery Room Air Intake/Output Intake/Output: Intake & Output 05/10/25 05/11/25 05/12/25 05/13/25 23:59 23:59 23:59 23:59 Intake Total 2090.0 2371 Output Total 800 475 Balance 1290.0 1896 Meds/Results Medications: Active Medications Generic Name Dose Route Start Last Admin Trade Name Freq PRN Reason Stop Dose Admin Acetaminophen 1,000 mg 05/11/25 12:24 05/13/25 04:35 Acetaminophen 500 Mg Tablet PO 1,000 mg Q6HR JIMMY Administration Albuterol 1 puff 05/11/25 12:33 Albuterol Sulfate (*Sp) Aerosol 1 Puff INHALATION PRN PRN shortness of breath or wheezing Cyanocobalamin 1,000 mcg 05/12/25 09:00 05/13/25 08:55 Cyanocobalamin 1,000 Mcg Tablet PO 1,000 mcg DAILY JIMMY Administration Docusate Sodium 100 mg 05/11/25 17:00 05/13/25 08:55 Docusate Sodium 100 Mg Capsule PO 100 mg BID JIMMY Administration Enoxaparin Sodium 40 mg 05/12/25 09:00 05/13/25 08:55 Enoxaparin 40 Mg/0.4 Ml Syringe SUB-Q 40 mg Q12HR JIMMY Administration Hydromorphone HCl 0.5 mg 05/11/25 12:24 05/12/25 19:07 Hydromorphone Hcl Inj (*Crx) 1 Mg/Ml Syr IV PUSH 0.5 mg Q2H PRN Administration Breakthrough Pain Rated 4-6 or NPO Azithromycin 500 mg/ Sodium 250 mls @ 250 mls/hr 05/11/25 12:00 05/12/25 15:23 Chloride IVPB 250 mls/hr Q24H JIMMY Administration Dextrose/Sodium Chloride 1,000 mls @ 125 mls/hr 05/11/25 12:24 05/12/25 20:50 Dextrose 5% Sodium Chloride 0.45% IV CONT Not Given .Q8H JIMMY Ibuprofen 600 mg 05/12/25 06:00 05/13/25 04:35 Ibuprofen 600 Mg Tablet PO 600 mg Q6HR JIMMY Administration Miscellaneous Information 0 each 05/11/25 00:01 Albuterol Mdi Clarify How Often/Frequency Prn Prn Sob? XX 06/10/25 00:00 CLARIFY JIMMY Naloxone HCl 0.1 mg 05/11/25 12:24 Naloxone Hcl 0.4 Mg/Ml Vial IV PUSH Q2M PRN Respiratory rate less than 10 Ondansetron HCl 4 mg 05/11/25 12:24 Ondansetron Inj 4 Mg/2 Ml Vial IV PUSH Q6H PRN Nausea Oxycodone HCl 5 mg 05/11/25 12:24 05/13/25 08:55 Oxycodone Hcl (*Crx) 5 Mg Tab Ir PO 5 mg Q4H PRN Administration Pain Rated 4-6 Oxycodone HCl 10 mg 05/11/25 12:24 Oxycodone Hcl (*Crx) 5 Mg Tab Ir PO Q6H PRN Pain Rated 7-10 Simethicone 80 mg 05/11/25 12:24 05/13/25 08:55 Simethicone 80 Mg Tab.Chew PO 80 mg TIDWM JIMMY Administration Labs 05/13/25 03:31 05/12/25 04:21 Labs: Laboratory Results - last 24 hr 05/12/25 05/13/25 08:50 03:31 WBC 13.6 H RBC 3.03 L Hgb 8.4 L Hct 26.3 L MCV 86.8 MCH 27.7 MCHC 31.9 L RDW 18.6 H Plt Count 362 MPV 10.1 Immature Gran % (Auto) 0.3 Neut % (Auto) 45.7 Lymph % (Auto) 42.3 [place] % (Auto) 9.1 H Eos % (Auto) 2.2 Baso % (Auto) 0.4 Lymph # (Auto) 5.74 H [place] # (Auto) 1.2 H Eos # (Auto) 0.3 Baso # (Auto) 0.1 Abs Immat Gran (auto) 0.04 H Absolute Neuts (auto) 6.2 Absolute Nucleated RBC 0.000 Band Neutrophils % Not Reportable Nucleated RBC % 0.0 Platelet Estimate Adequate Target Cells Occasional Schistocytes None seen Blood Type O Negative Antibody Screen Negative Crossmatch See Detail
--- NOTE | 2025-05-13 10:59 | P.DS_ITS ---
DS: Admitting Diagnosis Discharge Date 05/13/2025 Admitting Diagnosis Symptomatic fibroid uterus DS: Discharge Diagnosis Discharge Diagnosis (1) Menorrhagia: Code(s): N92.0 - Excessive and frequent menstruation with regular cycle Status: Acute (2) Uterine fibroid: Code(s): D25.9 - Leiomyoma of uterus, unspecified Status: Acute (3) History of endometrial ablation: Code(s): Z98.890 - Other specified postprocedural states Status: Acute (4) Delivery by section: Onset Date: 02/28/92 Status: Acute (5) History of pulmonary embolism: Code(s): Z86.711 - Personal history of pulmonary embolism Status: Acute DS: Summary Hospital Course Hospital Course: 54-year-old female admitted for hysterectomy due to above-listed conditions. See operative note for full details, robotic procedure was converted to open due to inability to remove specimen robotically as well as increasing blood loss. Did receive 1unit packed cells postoperatively and has done well. See progress note from today for full details. Status at Discharge Cognitive/behavioral status at discharge: Stable Time Spent with Patient Time attestation: Total time spent providing and/or coordinating discharge services: DS: Data Data Completed and Pending Completed studies during hospitalization: Pending at discharge 05/11/25 09:35 Surgical [PTH] Routine Labs on day of discharge: Labs from last 24 hours 05/13/25 05/12/25 03:31 08:50 WBC 13.6 H RBC 3.03 L Hgb 8.4 L Hct 26.3 L MCV 86.8 MCH 27.7 MCHC 31.9 L RDW 18.6 H Plt Count 362 MPV 10.1 Immature Gran % (Auto) 0.3 Neut % (Auto) 45.7 Lymph % (Auto) 42.3 [place] % (Auto) 9.1 H Eos % (Auto) 2.2 Baso % (Auto) 0.4 Lymph # (Auto) 5.74 H [place] # (Auto) 1.2 H Eos # (Auto) 0.3 Baso # (Auto) 0.1 Abs Immat Gran (auto) 0.04 H Absolute Neuts (auto) 6.2 Absolute Nucleated RBC 0.000 Band Neutrophils % Not Reportable Nucleated RBC % 0.0 Platelet Estimate Adequate Target Cells Occasional Schistocytes None seen Blood Type O Negative Antibody Screen Negative Crossmatch See Detail Discharge Plan Discharge Discharging Clinician: Phil Chavez Patient Disposition: Home Activity: no straining, no driving, follow weight bearing status and pelvic rest Diet: as tolerated Wound Care Instructions: incision open to air Discharge Instructions: Remove the Scopolamine patch that was placed behind your ear in 72 hours or less. Wash your hands after touching. Patient Language: Urdu Stand Alone Forms: General Discharge Instructions Follow-up/Referrals: Phil Chavez MD [Physician, [employer] GRADER] - 3 Weeks Discharge Medications: New oxycodone 5 mg Tablet 5 mg PO Q4H PRN (Reason: Pain Rated 4-6) Qty: 20 0RF ibuprofen 600 mg Tablet 600 mg PO Q6HR Qty: 3 0RF enoxaparin [Lovenox] 40 mg/0.4 mL Syringe 40 mg subcut Q12HR Qty: 42 1RF metronidazole 500 mg tablet 500 mg PO Q8H Qty: 15 0RF Continued albuterol 90 mcg/actuation aerosol 90 mcg inhalation PRN PRN (Reason: shortness of breath or wheezing) Patient Comments: ... clobetasol 0.05 % ointment 1 applic topical BID PRN (Reason: itching) Patient Comments: PRN cyanocobalamin (vitamin B-12) 1,000 mcg capsule 1,000 mcg PO DAILY Date of admission: 05/12/25 10:37 Primary Care Provider: Arthur,Kennedy Ashton MD Admitting Provider: Phil Chavez Attending physician on admission: Phil Chavez Condition: Stable
[2025-05-13 11:45] VITALS: BP 133/66; PULSE 62; RESP 18; TEMP 36.4; O2SAT 98
== END 2025-05-13 14:21 | disposition home or self-care (01) ==
LOC: ANHSURGERY 10:50 → ANHOB2 10:50
PROVIDERS: Admitting Provider Obstetrics & Gynecology; Visit Provider Obstetrics & Gynecology
PROC: (CPT 58180; principal; 2025-05-11 07:30)
DX: N92.0 Excessive and frequent menstruation with regular cycle (principal); D25.9 Leiomyoma of uterus, unspecified; N85.2 Hypertrophy of uterus; D50.0 Iron deficiency anemia secondary to blood loss (chronic); Z53.31 Laparoscopic surgical procedure converted to open procedure; Z98.890 Other specified postprocedural states; Z86.711 Personal history of pulmonary embolism; M32.9 Systemic lupus erythematosus, unspecified; Z83.3 Family history of diabetes mellitus; Z82.49 Family history of ischemic heart disease and other diseases of the circulatory system
CPT/HCPCS: 58180; S2900; 36415; 36430; 80048; 85025; 86850; 86900; 86901; 86923; 87070; 87075; 87205; 88307; 99199; A9270; G0378; J0456; J0690; J1100; J1171; J1650; J1836; J1885; J2003; J2250; J2405; J2704; J3010; J7030; J7050; J7120; P9016; Q9968

== ENCOUNTER 2025-05-30 12:42 | Outpatient (CLI) | payer OTHER, SELFPAY ==
[2025-05-30 13:11] LABS: Hematocrit 29.9 % (37.0-47.0); Hemoglobin 9.1 g/dL (12.0-15.0); Immature Granulocyte Percent A 0.5 % (0-0.5); Lymphocytes Absolute Auto 4.40 K/mm3 (0.9-3.2); Mean Corpuscular HGB Conc 30.4 g/dl (32-36); Mean Corpuscular Hemoglobin 26.6 pg (26-34); Mean Corpuscular Volume 87.4 fl (80-100); Nucleated Red Blood Cells Absolute Auto 0.000 K/mm3 (0.0-0.012); Nucleated Red Blood Cells Perc 0.0 % (0.0-0.2); Platelet Count Result 779 k/mm3 (150-375); Red Blood Count 3.42 M/mm3 (4.2-5.4); White Blood Count 10.7 K/mm3 (4.5-10.0)
[2025-05-30 13:26] LABS: Add Urine Microscopic? YES; Appearance Urine Clear (Clear); Glucose Urine UA Negative (Negative); Leukocyte Esterase Ur Trace LEU/UL (Negative); Need Manual Microscopic Reviewed; Nitrate Urine Negative (Negative); Non Pathogenic Casts 0-2; Specific Grav Ur 1.028 (1.001-1.035)
--- OUTSIDE RECORDS SUMMARY | 2025-05-30 13:30 | XMS_ITS | Clinical Summary ---
Author Organization [facility] Address [address] [place] [address] Care Team Providers Care Distribution Center Manager Name Role Phone Kennedy Gibson MD Primary Care Provider Allergies Active Allergy Reactions Criticality Noted Date Comments Morphine Anaphylaxis High 05/15/2025 Encounters Date Type Department Care Team Description 05/15/2025 11:05 PM CDT - 05/16/2025 12:30 AM CDT Emergency [facility] Emergency Department [address] [place] [address] Elaine Burgess MD Postoperative seroma involving genitourinary system after genitourinary procedure (Primary Dx) Discharge Disposition: Discharge to home or self care from Last 3 Months Social History Tobacco Use Types Packs/Day Years Used Date Smoking Tobacco: Never Tobacco Cessation:Counseling Given: Not Answered Personal Safety Answer Date Recorded Have you ever been in or are you currently in a harmful physical or emotional relationship or is someone making you feel afraid or unsafe? Denies 05/15/2025 Comments No Sex and Gender Information Value Date Recorded Sex Assigned at Not on file Legal Sex Female 6:44 PM SAMPLE EXAMINER Gender Identity Not on file Sexual Orientation Not on file Obstetrics History Last Filed Vital Signs Vital Sign Reading Time Taken Comments Blood Pressure 151/74 05/16/2025 12:00 AM CDT Pulse 66 05/16/2025 12:00 AM CDT Temperature 36.9 C (98.5 F) 05/15/2025 11:30 PM CDT Respiratory Rate 18 05/15/2025 11:30 PM CDT Oxygen Saturation 98% 05/16/2025 12:00 AM CDT Inhaled Oxygen Concentration - - Weight 115.7 kg (255 lb) 11/11/2014 9:26 AM CDT Height 180.3 cm (5' 11) 11/11/2014 9:26 AM CDT Body Mass Index 35.57 11/11/2014 9:26 AM CDT Plan of Treatment Health Maintenance Due Date Last Done Comments Breast Cancer Screening-Mammogram 1972 Colon Cancer Screening-Colonoscopy 1972 Depression Screening 1972 Hepatitis C Screening 1972 DTaP/Tdap/Td Vaccine (1 - Tdap) 1983 Hepatitis B Screening 1990 Regular Well Visit/Exam 18-64 1990 Zoster Vaccine (1 of 2) 2022 Covid-19 Vaccine (3 - 2024-2 6 season) 2025 05/16/2021, 04/25/2021 Influenza Vaccine (#1) 2025 , 06/12/2023 Pneumococcal vaccine <65 Aged Out No longer eligible based on patient's age to complete this topic Procedures Procedure Name Priority Date/Time Associated Diagnosis Comments EGFR STAT 05/15/2025 11:05 PM CDT DIFFERENTIAL AUTO STAT 05/15/2025 11: 05 PM CDT COMPREHENSIVE METABOLIC PANEL STAT 05/15/2025 11:05 PM CDT CBC WITH AUTO DIFFERENTIAL STAT 05/15/2025 11:05 PM CDT from Last 3 Months Results * eGFR (05/15/2025 11:05 PM CDT) eGFR >90 >=60 mL/min/1. 73 m2 Comment: Interpretive Data Reference Interval Normal >/= 90 mL/min/1.73m2 Mildly decreased* 60 - 89 mL/min/1.73m2 Mildly to moderately decreased 45 - 59 mL/min/1.73m2 Moderately to severely decreased 30 - 44 mL/min/1.73m2 Severely decreased 15 - 29 mL/min/1.73m2 Kidney Failure < 15 mL/min/1.73m2 *Relative to young adult level Estimated glomerular filtration rate is determined by the 2020 CKD-EPI equation recommended by the National Kidney Foundation (A Unifying Approach to GFR Estimation: Recommendations of the NKF-ASK Task Force on Reassessing the Inclusion of Race in Diagnosing Kidney Disease, JASN 2020). The CKD-EPI equation should not be used for patients with unstable renal function and has not been validated in children and those over 70. Current interpretive data was last reviewed 2021. Testing performed by: [address] [address] Blood 05/15/2025 11:0 5 PM CDT 05/15/2025 11:11 PM CDT us Elaine Burgess MD LAB BLOOD ORDERABLES Luz Marina mack Result [facility] [place] [address] * (ABNORMAL) Differential, auto (05/15/2025 11:05 PM CDT) Neutrophil abs 6.44 1.50 - 6.50 K/cumm Comment:Testing performed by : [address] [address] Imm gran abs 0.09 0.00 - 0.10 K/cumm MOE Comment:Testing performed by : [address] [address] Lymphocyte abs 5.64(H) 0.80 - 3.30 K/cumm MOE Comment:Testing performed by : [address] [address] Monocyte abs 1.37(H) 0.20 - 0.80 K/cumm MOE Comment:Testing performed by : [address] [address] Eosinophil abs 0.66(H) 0.00 - 0.50 K/cumm MOE Comment:Testing performed by : [address] [address] Basophil abs 0.05 0.00 - 0.10 K/cumm MOE Comment:Testing performed by : [address] [address] Neutrophil pct 45.2 % [facility] Comment: Interpretive Data Percent cell count reference ranges are not reported, since discordance with absolute values may lead to misinterpretation of CBC data. Current Interpretive Data was last revised on 2017. Testing performed by: [address] [address] Imm gran pct 0.6 % [facility] Comment: Interpretive Data Percent cell count reference ranges are not reported, since discordance with absolute values may lead to misinterpretation of CBC data. Current Interpretive Data was last revised on 2017. Testing performed by: [address] [address] Lymphocyte pct 39.6 % [facility] Comment: Interpretive Data Percent cell count reference ranges are not reported, since discordance with absolute values may lead to misinterpretation of CBC data. Current Interpretive Data was last revised on 2017. Testing performed by: [address] [address] Monocyte pct 9.6 % [facility] Comment: Interpretive Data Percent cell count reference ranges are not reported, since discordance with absolute values may lead to misinterpretation of CBC data. Current Interpretive Data was last revised on 2017. Testing performed by: [address] [address] Eosinophil pct 4.6 % [facility] Comment: Interpretive Data Percent cell count reference ranges are not reported, since discordance with absolute values may lead to misinterpretation of CBC data. Current Interpretive Data was last revised on 2017. Testing performed by: [address] [address] Basophil pct 0.4 % [facility] Comment: Interpretive Data Percent cell count reference ranges are not reported, since discordance with absolute values may lead to misinterpretation of CBC data. Current Interpretive Data was last revised on 2017. Testing performed by: [address] [address] Blood 05/15/2025 11:0 5 PM CDT 05/15/2025 11:11 PM CDT Elaine Burgess MD LAB BLOOD ORDERABLES Luz Marina martina Result [facility] [address] [facility] Department [place] [address] * (ABNORMAL) CBC with auto differential (05/15/2025 11:05 PM CDT) WBC 14.25(H) 3.80 - 9.90 K/cumm Comment:Testing performed by : [address] [address] Hgb 8.2(L) 11.9 - 15.5 g/dL MOE Comment:Testing performed by : [address] [address] Hct 24.8(L) 35.6 - 45.5 % MOE Comment:Testing performed by : [address] [address] Plt 450(H) 150 - 400 K/cumm MOE Comment:Testing performed by : [address] [address] MPV 9.4 9.1 - 12.3 fL MOE Comment:Testing performed by : [address] [address] RBC 2.92(L) 3.90 - 5.20 M/cumm MOE Comment:Testing performed by : [address] [address] MCV 84.9 81.3 - 96.4 fL MOE Comment:Testing performed by : [address] [address] MCH 28.1 27.1 - 33.3 pg MOE Comment:Testing performed by : [address], [address] MCHC 33.1 32.3 - 35.7 g/dL MOE Comment:Testing performed by : [address] [place]., [address] RDW CV 19.0(H) 11.1 - 14.9 % MOE GORE Comment:Testing performed by : [address] [address] RDW SD 57.2(H) 35.7 - 48.1 fL MOE GORE Comment:Testing performed by : [address] [address] NRBC abs 0.06(H) 0.00 - 0.01 K/cumm MOE GORE Comment:Testing performed by : [address] [address] Morphologic Screen Results confirmed by manual morphology review. MOE GORE Comment:Testing performed by : [address] [address] Blood 05/15/2025 11:0 5 PM CDT 05/15/2025 11:11 PM CDT Elaine Burgess MD LAB BLOOD ORDERABLES Edit ed Result - Final MOE [address] [facility] Department of Laboratories [place], [place] [id number] * (ABNORMAL) Comprehensive metabolic panel (05/15/2025 11:05 PM CDT) Sodium 138 135 - 145 mmol/L Comment:Testing performed by : [address] [address] Potassium, pl 3.7 3.3 - 4.9 mmol/L MOE GORE Comment:Testing performed by : [address] [address] Chloride 103 97 - 110 mmol/L MOE GORE Comment:Testing performed by : [address] [address] CO2 24 22 - 32 mmol/L MOE GORE Comment:Testing performed by : [address] [address] Anion gap 11 2 - 15 mmol/L MOE GORE Comment:Testing performed by : [address] [place]., [address] BUN 7 6 - 25 mg/dL [facility] Comment:Testing performed by : [address] [address] Creatinine 0.74 0.60 - 1.10 mg/dL MOE Comment:Testing performed by : [address] [address] Glucose 113 70 - 199 mg/dL [facility] Comment: Interpretive Data Fasting glucose >/= 126 mg/dl is diagnostic for diabetes. Fasting is defined as no caloric intake for at least 8 hours. Fasting glucose between 100 mg/dl to 125 mg/dl is diagnostic of prediabetes. In a patient with classic symptoms of hyperglycemia or hyperglycemic crisis, a random glucose >/= 200 mg/dl is diagnostic for diabetes. In the absence of unequivocal hyperglycemia, results should be confirmed by repeat testing. The classification and Diagnosis of Diabetes Diabetes Care 2021; 46: S19-S40. Current interpretive data was last revised 2022. Testing performed by: [address] [address] Calcium 9.1 8.5 - 10.3 mg/dL [facility] Comment:Testing performed by : [address] [address] Bilirubin, total 0.3 0.1 - 1.2 mg/dL [facility] Comment:Testing performed by : [address] [address] Protein, pl 7.5 6.5 - 8.5 g/dL [facility] Comment:Testing performed by : [address] [address] Albumin 3.7 3.5 - 5.0 g/dL [facility] Comment:Testing performed by : [address] [address] Alk phos 80 40 - 130 Units/L MOE Comment:Testing performed by : [address] [address] ALT 38 7 - 45 Units/L MOE Comment:Testing performed by : [address] [address] AST 51(H) 10 - 45 Units/L MOE GORE Comment:Testing performed by : [facility], [address] [place] [address], [place]., [address] Blood 05/15/2025 11:0 5 PM CDT 05/15/2025 11:11 PM CDT us Elaine Burgess MD LAB BLOOD ORDERABLES Luz Marina mack Result [facility] [address] [facility] [place] [address] from Last [address] [place] [address] [place] [address] Care Teams Distribution Center Manager Relationship Specialty Start Date End Date Kennedy Gibson MD [address] [place] [address] PCP - General Internal Medicine 05/15/25
--- OUTSIDE RECORDS SUMMARY | 2025-05-30 13:30 | XMS_ITS | Patient Health Record ---
Author Organization [employer] Address [address] [place] [address] Care Team Providers Care Production Truck Driver Name Role Phone Kennedy Gibson MD Primary Care Provider Karson Eldridge [facility] [phone] Results Component Value Reference Range Notes Pathology [...] Status Risk Notes Problem Colon cancer screening (304972617) Colon cancer screening (Z12.11) Active confirmed Problem Benign neoplasm of colon (77743061) Benign colon polyp (K63.5) Active confirmed Encounters Encounter Location Date Provider Diagnosis [facility] [address] [place] [address] 08/22/2024 Karson José Colon cancer screening Z12.11 and Benign colon polyp K63.5 [facility] [address] [place] [address] 06/16/2024 Karson José [facility] [address] [place] [address] 06/16/2024 Karson José [address] [place] [address] 08/29/2024 Karson José Assessments Encounter Date Diagnosis [...] Coverage End Date [employer] [address] [address] [place] [address] [id number] Jackelin James Self - patient is the insured
[2025-05-30 13:36] LABS: Alanine Aminotransferase 26 U/L (6-35); Albumin Level 4.2 g/dL (3.5-5.1); Alkaline Phosphatase 85 U/L (38-126); Anion Gap 8 mmol/L (4-12); Aspartate Amino Transferase 30 U/L (14-36); Bilirubin,Total 0.2 mg/dL (0.2-1.3); Blood Urea Nitrogen 14 mg/dL (7-17); Calcium 8.9 mg/dL (8.4-10.2); Carbon Dioxide 27 mmol/L (22-30); Chloride 104 mmol/L (98-107); Estimated Glomerular Filt Rate > 60; Glucose 120 mg/dL (65-110); Potassium 3.8 mmol/L (3.4-5.0); Sodium 139 mmol/L (137-145); Total Protein 8.9 g/dL (6.3-8.2)
== END 2025-05-30 12:43 | disposition home or self-care (01) ==
PROVIDERS: Visit Provider Obstetrics & Gynecology
DX: G89.18 Other acute postprocedural pain (principal)
CPT/HCPCS: 36415; 80053; 81001; 85025

== ENCOUNTER 2025-05-31 14:01 | Outpatient (CLI) | payer OTHER, SELFPAY ==
--- NOTE | ~2025-05-31 | CT_ITS ---
EXAMINATION: CT abdomen pelvis wo con DATE: 05/31/2025 14:18 INDICATION: Left lower abdominal pain. TECHNIQUE: Computed tomography (CT) of the abdomen and pelvis was performed without intravenous contrast. Automated exposure control and iterative reconstruction technique were employed. The dose-length product was 1126.41 mGy-cm. COMPARISON: None. FINDINGS: The visualized portions of the lung bases demonstrate mild atelectasis. No pleural effusion. Cardiomegaly is noted. There is a small pericardial effusion. The liver, gallbladder are normal. The spleen is absent. The pancreas, adrenal glands, and kidneys are normal. There are no dilated loops of bowel. The appendix is normal. There is extensive fat stranding involving the small bowel mesentery. There is a fat stranding in anterior abdominal wall, worst at the port sites from recent surgery, consistent with inflammation. There are no pathologically enlarged lymph nodes. There is a small volume of pelvic ascites. There is subcutaneous fluid in the anterior pelvis measuring 12.8 x 1.5 x 2.8 cm. There is mild bilateral inguinal and external iliac lymphadenopathy, likely reactive. There is mild thoracic and lumbar spondylosis. There is mild chronic anterior wedging of multiple thoracic vertebral bodies. IMPRESSION: 1. Small volume of pelvic ascites. 2. Subcutaneous fluid collection in the anterior pelvis, which may be a seroma. 3. Extensive fat stranding in the small bowel mesentery, consistent with inflammation versus edema. 4. Small pericardial effusion. 5. Mild pelvic lymphadenopathy, likely reactive. Reviewed, dictated and finalized at location E. IMPRESSION: 1. Small volume of pelvic ascites. 2. Subcutaneous fluid collection in the anterior pelvis, which may be a seroma. 3. Extensive fat stranding in the small bowel mesentery, consistent with inflam mation versus edema. 4. Small pericardial effusion. 5. Mild pelvic lymphadenopathy, likely reactive.
== END 2025-05-31 14:02 | disposition home or self-care (01) ==
LOC: MICIMG 14:03
PROVIDERS: PCP Obstetrics & Gynecology; Visit Provider Obstetrics & Gynecology
DX: G89.18 Other acute postprocedural pain (principal); R18.8 Other ascites; M79.89 Other specified soft tissue disorders; K65.4 Sclerosing mesenteritis; I31.39 Other pericardial effusion (noninflammatory); R59.0 Localized enlarged lymph nodes
CPT/HCPCS: 74176

== ENCOUNTER 2025-08-02 12:04 | Outpatient (CLI) | payer OTHER, SELFPAY ==
[2025-08-02 14:12] LABS: Hematocrit 29.6 % (37.0-47.0); Hemoglobin 9.1 g/dL (12.0-15.0); Immature Granulocyte Percent A 0.3 % (0-0.5); Lymphocytes Absolute Auto 3.54 K/mm3 (0.9-3.2); Mean Corpuscular HGB Conc 30.7 g/dl (32-36); Mean Corpuscular Hemoglobin 24.3 pg (26-34); Mean Corpuscular Volume 79.1 fl (80-100); Nucleated Red Blood Cells Absolute Auto 0.000 K/mm3 (0.0-0.012); Nucleated Red Blood Cells Perc 0.0 % (0.0-0.2); Platelet Count Result 560 k/mm3 (150-375); Red Blood Count 3.74 M/mm3 (4.2-5.4); White Blood Count 7.5 K/mm3 (4.5-10.0)
[2025-08-02 15:10] LABS: Iron 36 ug/dL (37-170)
[2025-08-02 15:59] LABS: Percent Iron Saturation 9 % (20-50)
[2025-08-02 17:21] LABS: Hepatitis B Surface Antigen Negative (Negative)
[2025-08-02 17:38] LABS: HIV 1/2 Ab P24 Ag Result Negative (Negative)
== END 2025-08-02 12:05 | disposition home or self-care (01) ==
LOC: ANHLAB 12:05
PROVIDERS: PCP Obstetrics & Gynecology; Visit Provider Obstetrics & Gynecology
DX: D50.8 Other iron deficiency anemias (principal)
CPT/HCPCS: 36415; 83540; 83550; 85025; 86703; 86803; 87340; G0432